=== PATIENT | female | born 1945 | race Caucasian/White ===

== ENCOUNTER 2020-03-24 10:07 | Emergency (ER) | payer MEDICARE, SELFPAY ==
--- NOTE | ~2020-03-24 | XR_ITS ---
EXAMINATION: XR lumbar spine 2-3V EXAM DATE: 03/24/2020 10:58 INDICATION: Pain after pop while bending over x 1 day radiating to bilateral lower extremities. Initi al encounter. TECHNIQUE: Lumber spine frontal, lateral, lateral L5-S1 projections for interpretation. There is no prior study for comparison. FINDINGS: There is 5 mm anterolisthesis L4 on L5 without spondylolysis, mild to moderate disc diseas e at this level. The vertebral bodies are otherwise aligned and otherwise only mild disc disease. Th ere is moderate lumbar facet arthropathy. Sacrum, sacroiliac joints, sacral arcuate lines are intact. There are no acute fractures identified. IMPRESSION: 1. No acute lumbar findings. 2. Grade 1 anterolisthesis L4 on L5. 3. Moderate facet arthropathy. Reviewed, dictated and finalized at location B. [facility]
[2020-03-24 10:10] VITALS: BP 152/76; PULSE 64; RESP 20; TEMP 36.5; O2SAT 99
--- NOTE | 2020-03-24 10:37 | ED.GENADULT ---
HPI - General Adult General Chief complaint: Back Pain/Injury Stated complaint: Hurt back Source: patient and family Mode of arrival: ambulatory Limitations: no limitations History of Present Illness HPI narrative: Tracy is a 74F with a PMH of CAD and HLD that presented to the ED with back pain. She was leaning over to let her dog out when she had a pop in her back and immediate pain in her low back. It is a constant shooting pain that radiates to her buttock bilaterally. She did not fall. No loss of bowel/bladder control. No numbess or paralysis. It is more comfortable if she leans forward. Related Data Home Medications Medication Instructions Recorded Confirmed Aspir-81 81 mg PO DAILY 03/24/20 03/24/20 Allergies Allergy/AdvReac Type Severity Reaction Status Date / Time codeine AdvReac Unknown Verified 03/24/20 10:40 Review of Systems Constitutional: Constitutional: Reports no additional constitutional complaints Eyes: Eyes: Reports no additional eye complaints ENT: Reports system reviewed and no additional complaints, except as documented Cardiovascular: Cardiovascular: Reports no additional cardiovascular complaints Respiratory: Respiratory: Reports no additional respiratory complaints Gastrointestinal: Gastrointestinal: Reports no additional gastrointestinal complaints Genitourinary: Genitourinary: Reports no additional female genitourinary complaints Musculoskeletal: Musculoskeletal: Reports as per HPI Integumentary/Breasts: Skin/Breast: Reports system reviewed and no additional complaints, except as docu Neurologic: Reports as per HPI Psychiatric: Psychiatric: Reports no additional psychiatric complaints Exam Const: General: no acute distress and alert Orientation/consciousness: patient oriented x3 Limitations: No altered mental status HENMT: Head: normal to inspection Eyes: Conjunctivae: conjunctivae normal Pupils: Equal, round and reactive pupils present Neck: Neck: normal visual inspection Chest: Chest palpation & inspection: normal inspection of the chest Resp: Effort & Inspection: normal respiratory effort Cardio: Rate: regular rate GI: Inspection: non-distended GI Palp: Yes Soft to palpation and No Tenderness to palpation present (GI) : General: Yes no CVA tenderness Back/Spine/Pelvis: Other: No midline tenderness. Paraspinal musculature hyptertonic bilaterally. Decreased active ROM in lumbar sidebending and rotation to the left but otherwise normal. Normal strength and sensation throughout the lower extremities. Skin: General skin exam: normal color Rashes: no rashes Neuro: General: patient oriented x3 and moves all extremities Extrem: General: normal to inspection Psych: Mental Status: mental status grossly normal Course Course Emergency Course: C;montrell was evaluated. She was given toradol and Flexeril for the pain before radiographs. EXAMINATION: XR lumbar spine 2-3V EXAM DATE: 03/24/2020 10:58 INDICATION: Pain after pop while bending over x 1 day radiating to bilateral lower extremities. Initial encounter. TECHNIQUE: Lumber spine frontal, lateral, lateral L5-S1 projections for interpretation. There is no prior study for comparison. FINDINGS: There is 5 mm anterolisthesis L4 on L5 without spondylolysis, mild to moderate disc disease at this level. The vertebral bodies are otherwise aligned and otherwise only mild disc disease. There is moderate lumbar facet arthropathy. Sacrum, sacroiliac joints, sacral arcuate lines are intact. There are no acute fractures identified. IMPRESSION: 1. No acute lumbar findings. 2. Grade 1 anterolisthesis L4 on L5. 3. Moderate facet arthropathy. Vital Signs Vital signs: Vital Signs Temperature 97.7 F 03/24/20 10:10 Pulse Rate 64 03/24/20 10:10 Respiratory Rate 20 03/24/20 10:10 Blood Pressure 152/76 H 03/24/20 10:10 Pulse Oximetry 99 03/24/20 10:10 Temperature 97.7 F 03/24/20 10:10
[2020-03-24] MEDS: CYCLOBENZAPRINE HCL 10 MG TABLET PO (10:47)
[2020-03-24] MEDS: KETOROLAC 30 MG/ML VIAL (*BKC) IM (10:48)
--- NOTE | 2020-03-24 11:00 | PC.NURSE ---
report to RAJ holder
== END 2020-03-24 11:30 | disposition home or self-care (01) ==
PROVIDERS: Emergency Provider Family Medicine; PCP Internal Medicine Geriatric Medicine
DX: S39.012A Strain of muscle, fascia and tendon of lower back, initial encounter (principal)
CPT/HCPCS: 72100; 96372; 99283; A9270; J1885